=== PATIENT | female | born 1930 | race Caucasian/White ===

== ENCOUNTER 2018-08-20 15:47 | Emergency (ER) | payer MEDICARE, OTHER ==
[~2018-08-20] VITALS: Ht 160 cm; Wt 50.0 kg
[2018-08-20 16:41] LABS: BASOPHILS % (AUTO) 0.3 % (0-1); EOSINOPHILS # (AUTO) 0.4 X10'3 (0-0.9); EOSINOPHILS % (AUTO) 5.5 % (0-6); HEMATOCRIT 30.2 % (35.0-45.0); HEMOGLOBIN 9.9 g/dl (12.0-16.0); LYMPHOCYTES # (AUTO) 1.1 X10'3 (1.1-4.8); LYMPHOCYTES % (AUTO) 14.5 % (21-51); MEAN CORPUSCULAR HEMOGLOBIN 32.4 PG (27.0-31.0); MEAN CORPUSCULAR HGB CONC 32.9 % (33.0-36.5); MEAN CORPUSCULAR VOLUME 98.4 FL (78-98); MEAN PLATELET VOLUME 7.4 FL (7.4-10.4); MONOCYTES # (AUTO) 0.7 X10'3 (0-0.9); NEUTROPHILS # (AUTO) 5.2 X10'3 (1.8-7.7); NEUTROPHILS % (AUTO) 70.7 % (42-75); PLATELET COUNT 276 X10'3 (140-440); RED BLOOD COUNT 3.07 X10'6 (4.20-5.60); RED CELL DISTRIBUTION WIDTH 13.7 % (11.5-14.5); WHITE BLOOD COUNT 7.4 X10'3 (4.5-11.0)
[2018-08-20 17:03] LABS: ALANINE AMINOTRANSFERASE 14 U/L (12-78); ALBUMIN 3.1 G/DL (3.4-5.0); ALBUMIN/GLOBULIN RATIO 0.9 (1.1-1.5); ALKALINE PHOSPHATASE 57 IU/L (46-116); ANION GAP 8 (8-16); ASPARTATE AMINO TRANSFERASE 11 U/L (10-37); BILIRUBIN,TOTAL 0.2 MG/DL (0.1-1.0); BLOOD UREA NITROGEN 28 MG/DL (7-18); CHLORIDE 105 MMOL/L (99-107); CREATININE 1.22 MG/DL (0.40-0.90); GLUCOSE 124 MG/DL (70-104); POTASSIUM 4.4 MMOL/L (3.5-5.1); SODIUM 144 MMOL/L (135-145); TOTAL CARBON DIOXIDE 30.8 MMOL/L (24-32); TOTAL PROTEIN 6.4 G/DL (6.4-8.2); eGFR 42 ML/MIN
[2018-08-20 17:07] VITALS: BP 112/56
[2018-08-20 17:10] LABS: ETHANOL < 0.010 GM/DL (0.0-0.010)
[2018-08-20 17:19] LABS: CLARITY,URINE CLEAR (Clear); COLOR,URINE YELLOW (Yellow); GLUCOSE, URINE NEGATIVE (Neg); KETONES,URINE NEGATIVE (Neg); LEUKOCYTE ESTERASE ,URINE NEGATIVE (Neg); NITRITES, URINE NEGATIVE (Neg); OCCULT BLOOD,URINE NEGATIVE (Neg); PROTEIN,URINE NEGATIVE (Neg); UROBILINOGEN,URINE 0.2 E.U/dL (0.2-1.0)
[2018-08-20 17:27] LABS: UA COLLECTION TYPE CLN CATCH MIDSTREAM
[2018-08-20 17:29] LABS: URINE AMPHETAMINE SCREEN NEGATIVE (Neg); URINE BARBITUATE SCREEN NEGATIVE (Neg); URINE BENZODIAZEPINES SCREEN POSITIVE (Neg); URINE CANNABINOID SCREEN NEGATIVE (Neg); URINE COCAINE SCREEN NEGATIVE (Neg); URINE METHADONE SCREEN NEGATIVE (Neg); URINE OPIATE SCREEN POSITIVE (Neg); URINE PHENCYCLIDINE SCREEN NEGATIVE (Neg)
[2018-08-20] MEDS ORDERED: LEVO500T2 PO (21:50)
[2018-08-20] MEDS ORDERED: DULO-31 PO (21:54)
[2018-08-20] MEDS ORDERED: ALPR-160 PO (21:59)
[2018-08-20] MEDS ORDERED: HYDR-3968 PO (22:02)
== END 2018-08-20 21:09 | disposition home or self-care (01) ==
LOC: ER 15:47
DX: F32.9 Major depressive disorder, single episode, unspecified (principal); R45.851 Suicidal ideations; E03.9 Hypothyroidism, unspecified; N28.9 Disorder of kidney and ureter, unspecified; G89.29 Other chronic pain; F41.9 Anxiety disorder, unspecified; M25.511 Pain in right shoulder; Z90.49 Acquired absence of other specified parts of digestive tract; Z90.710 Acquired absence of both cervix and uterus; Z98.890 Other specified postprocedural states; Z88.2 Allergy status to sulfonamides; Z88.5 Allergy status to narcotic agent; Z60.2 Problems related to living alone
CPT/HCPCS: 36415; 71045; 80053; 80305; 80320; 81003; 84439; 84443; 84484; 85025; 93005; 99285

== ENCOUNTER 2018-08-20 20:08 | Inpatient (IN) | payer MEDICARE, OTHER ==
[~2018-08-20] VITALS: Ht 160 cm; Wt 46.3 kg
[2018-08-20 21:21] VITALS: BP 152/67
[2018-08-20] MEDS ORDERED: LEVO500T2 PO (21:50)
[2018-08-20] MEDS ORDERED: DULO-31 PO (21:54)
[2018-08-20] MEDS ORDERED: ALPR-160 PO (21:59)
[2018-08-20] MEDS ORDERED: HYDR-3968 PO (22:02)
[2018-08-20] MEDS: ALPRAZolam 0.25mg tablet PO PRN (22:54)
[2018-08-20] MEDS ORDERED: acetaminophen 325mg tablet PO PRN ×2 (23:05)
[2018-08-20] MEDS ORDERED: mag hydrox/Alum hydrox/simeth 30ml oral suspension PO PRN (23:05)
[2018-08-20] MEDS ORDERED: magnesium hydroxide 30ml (MOM) UD suspension PO PRN (23:05)
[2018-08-20] MEDS: traZODone 50mg tablet PO PRN (23:08)
[2018-08-21 08:00] VITALS: BP 109/49
[2018-08-21] MEDS ORDERED: levoFLOXACIN 500mg tablet PO SCH (08:00)
[2018-08-21] MEDS ORDERED: duloxetine 30mg CAPSULE.DR PO SCH (08:00)
[2018-08-21 09:00] LABS: CHOL/HDL RATIO 5.2 (0.00-4.99); CHOLESTEROL 181 MG/DL (0-200); HDL CHOLESTEROL 35 MG/DL (35-60); LDL CHOLESTEROL 108 MG/DL (50-100); TRIGLYCERIDES 263 MG/DL (20-135)
[2018-08-21] MEDS ORDERED: pneumococcal 23-VAL P-sac vacc 25 mcg/0.5ml vial IMVAC ONE (09:00)
[2018-08-21] MEDS: ALPRAZolam 0.25mg tablet PO PRN ×2 (11:16→20:23)
[2018-08-21] MEDS ORDERED: duloxetine 30mg CAPSULE.DR PO ONE (12:55)
[2018-08-21 19:00] VITALS: BP 111/47
[2018-08-21] MEDS: traZODone 50mg tablet PO PRN (20:24)
[2018-08-22] MEDS: ALPRAZolam 0.25mg tablet PO PRN ×2 (05:17→15:37)
[2018-08-22 07:36] VITALS: BP 125/65
[2018-08-22] MEDS: Protein Shake (high protein) 240ml (8oz) cup PO SCH ×3 (08:15→17:35)
[2018-08-22] MEDS: duloxetine 30mg CAPSULE.DR PO SCH (08:16)
[2018-08-22 19:00] VITALS: BP 114/51
[2018-08-22] MEDS: traZODone 50mg tablet PO PRN (21:06)
[2018-08-23] MEDS: ALPRAZolam 0.25mg tablet PO PRN ×3 (05:48→13:04)
[2018-08-23 08:00] VITALS: BP 147/77
[2018-08-23] MEDS: Protein Shake (high protein) 240ml (8oz) cup PO SCH ×3 (08:00→17:44)
[2018-08-23] MEDS: duloxetine 30mg CAPSULE.DR PO SCH (08:18)
[2018-08-23 19:00] VITALS: BP 102/40
[2018-08-23] MEDS: traZODone 50mg tablet PO PRN (20:18)
[2018-08-23] MEDS ORDERED: mirtazapine 15mg tablet PO SCH (21:00)
[2018-08-24 08:00] VITALS: BP 141/58
[2018-08-24] MEDS: Protein Shake (high protein) 240ml (8oz) cup PO SCH ×3 (08:36→18:02)
[2018-08-24] MEDS: duloxetine 30mg CAPSULE.DR PO SCH (08:36)
[2018-08-24] MEDS: ALPRAZolam 0.25mg tablet PO PRN ×2 (08:40→16:58)
[2018-08-24 19:28] VITALS: BP 109/47
[2018-08-24] MEDS: mirtazapine 15mg tablet PO SCH (21:22)
[2018-08-25] MEDS: ALPRAZolam 0.25mg tablet PO SCH (08:03)
[2018-08-25] MEDS: duloxetine 30mg CAPSULE.DR PO SCH (08:04)
[2018-08-25] MEDS: Protein Shake (high protein) 240ml (8oz) cup PO SCH ×3 (08:04→18:21)
[2018-08-25 08:10] VITALS: BP 136/66
[2018-08-25 19:54] VITALS: BP 119/43
[2018-08-25] MEDS: mirtazapine 15mg tablet PO SCH (20:19)
[2018-08-26 08:00] VITALS: BP 140/54
[2018-08-26] MEDS: Protein Shake (high protein) 240ml (8oz) cup PO SCH ×3 (08:02→18:00)
[2018-08-26] MEDS: duloxetine 30mg CAPSULE.DR PO SCH (08:02)
[2018-08-26] MEDS: ALPRAZolam 0.25mg tablet PO SCH ×2 (08:02→17:54)
[2018-08-26] MEDS: ALPRAZolam 0.25mg tablet PO PRN (17:57)
[2018-08-26 20:00] VITALS: BP 106/46
[2018-08-26] MEDS: mirtazapine 15mg tablet PO SCH (21:13)
[2018-08-27] MEDS: duloxetine 30mg CAPSULE.DR PO SCH (08:03)
[2018-08-27] MEDS: ALPRAZolam 0.25mg tablet PO SCH (08:04)
[2018-08-27] MEDS: Protein Shake (high protein) 240ml (8oz) cup PO SCH ×3 (08:07→18:05)
[2018-08-27 08:08] VITALS: BP 144/57
[2018-08-27 19:31] VITALS: BP 115/43
[2018-08-27 20:00] VITALS: BP 110/50
[2018-08-27] MEDS: mirtazapine 15mg tablet PO SCH (20:40)
[2018-08-28] MEDS: ALPRAZolam 0.25mg tablet PO SCH (08:04)
[2018-08-28] MEDS: Protein Shake (high protein) 240ml (8oz) cup PO SCH ×3 (08:04→18:01)
[2018-08-28] MEDS: duloxetine 30mg CAPSULE.DR PO SCH (08:04)
[2018-08-28 08:26] VITALS: BP 145/60
[2018-08-28 20:00] VITALS: BP 123/35
[2018-08-28] MEDS: mirtazapine 15mg tablet PO SCH (20:17)
[2018-08-28 22:03] VITALS: BP 113/45
[2018-08-29] MEDS: ALPRAZolam 0.25mg tablet PO PRN (03:53)
[2018-08-29] MEDS: duloxetine 30mg CAPSULE.DR PO SCH (07:57)
[2018-08-29] MEDS: ALPRAZolam 0.25mg tablet PO SCH (07:57)
[2018-08-29 07:58] VITALS: BP 140/75
[2018-08-29] MEDS: Protein Shake (high protein) 240ml (8oz) cup PO SCH ×3 (08:02→18:00)
[2018-08-29 20:00] VITALS: BP 94/44
[2018-08-29] MEDS: mirtazapine 15mg tablet PO SCH (20:37)
[2018-08-30] MEDS: ALPRAZolam 0.25mg tablet PO PRN (04:00)
[2018-08-30 08:00] VITALS: BP 148/61
[2018-08-30] MEDS: duloxetine 30mg CAPSULE.DR PO SCH (08:18)
[2018-08-30] MEDS: ALPRAZolam 0.25mg tablet PO SCH (08:19)
[2018-08-30] MEDS: Protein Shake (high protein) 240ml (8oz) cup PO SCH ×3 (08:20→18:00)
[2018-08-30 19:00] VITALS: BP 122/44
[2018-08-30] MEDS: mirtazapine 15mg tablet PO SCH (20:08)
[2018-08-31 08:00] VITALS: BP 134/59
[2018-08-31] MEDS: ALPRAZolam 0.25mg tablet PO SCH (08:10)
[2018-08-31] MEDS: Protein Shake (high protein) 240ml (8oz) cup PO SCH ×3 (08:10→17:54)
[2018-08-31] MEDS: duloxetine 30mg CAPSULE.DR PO SCH (08:10)
[2018-08-31 20:00] VITALS: BP 104/46
[2018-08-31] MEDS: traZODone 50mg tablet PO PRN (20:35)
[2018-08-31] MEDS: mirtazapine 15mg tablet PO SCH (20:36)
[2018-09-01] MEDS: HYDROcodone/acetaminophen 5mg/325mg tablet PO PRN ×2 (07:24→14:20)
[2018-09-01] MEDS: ALPRAZolam 0.25mg tablet PO SCH (07:56)
[2018-09-01] MEDS: duloxetine 30mg CAPSULE.DR PO SCH (07:56)
[2018-09-01 08:00] VITALS: BP 128/55
[2018-09-01] MEDS: Protein Shake (high protein) 240ml (8oz) cup PO SCH ×3 (08:03→18:00)
[2018-09-01 20:00] VITALS: BP 126/69
[2018-09-01] MEDS: traZODone 50mg tablet PO PRN (20:06)
[2018-09-01] MEDS: mirtazapine 15mg tablet PO SCH (20:06)
[2018-09-02] MEDS: HYDROcodone/acetaminophen 5mg/325mg tablet PO PRN ×3 (07:18→21:03)
[2018-09-02] MEDS: Protein Shake (high protein) 240ml (8oz) cup PO SCH ×3 (07:50→17:40)
[2018-09-02] MEDS: duloxetine 30mg CAPSULE.DR PO SCH (07:50)
[2018-09-02] MEDS: ALPRAZolam 0.25mg tablet PO SCH (07:50)
[2018-09-02 08:00] VITALS: BP 147/63
[2018-09-02 19:50] VITALS: BP 102/48
[2018-09-02] MEDS: mirtazapine 15mg tablet PO SCH (21:02)
[2018-09-02] MEDS: traZODone 50mg tablet PO PRN (21:03)
[2018-09-03] MEDS: ALPRAZolam 0.5mg tablet PO PRN ×2 (03:19→08:02)
[2018-09-03] MEDS: levoTHYROXINE 25mcg tablet PO SCH (07:32)
[2018-09-03] MEDS: HYDROcodone/acetaminophen 5mg/325mg tablet PO PRN ×3 (07:32→20:36)
[2018-09-03 08:00] VITALS: BP 135/55
[2018-09-03] MEDS: duloxetine 30mg CAPSULE.DR PO SCH (08:02)
[2018-09-03] MEDS: ALPRAZolam 0.25mg tablet PO SCH (08:03)
[2018-09-03] MEDS: Protein Shake (high protein) 240ml (8oz) cup PO SCH ×3 (08:03→17:26)
[2018-09-03 19:00] VITALS: BP 106/45
[2018-09-03] MEDS: mirtazapine 15mg tablet PO SCH (20:36)
[2018-09-03] MEDS: traZODone 50mg tablet PO PRN (20:36)
[2018-09-04] MEDS: ALPRAZolam 0.5mg tablet PO PRN (01:53)
[2018-09-04] MEDS: duloxetine 30mg CAPSULE.DR PO SCH (07:32)
[2018-09-04] MEDS: HYDROcodone/acetaminophen 5mg/325mg tablet PO PRN ×3 (07:32→20:28)
[2018-09-04] MEDS: levoTHYROXINE 25mcg tablet PO SCH (07:32)
[2018-09-04] MEDS: ALPRAZolam 0.25mg tablet PO SCH (07:33)
[2018-09-04] MEDS: Protein Shake (high protein) 240ml (8oz) cup PO SCH ×4 (08:00→18:39)
[2018-09-04 08:02] VITALS: BP 134/53
[2018-09-04 19:00] VITALS: BP 120/44
[2018-09-04] MEDS: traZODone 50mg tablet PO PRN (20:21)
[2018-09-04] MEDS: mirtazapine 15mg tablet PO SCH (20:21)
[2018-09-05] MEDS: ALPRAZolam 0.25mg tablet PO PRN (02:50)
[2018-09-05 07:23] VITALS: BP 154/54
[2018-09-05] MEDS: HYDROcodone/acetaminophen 5mg/325mg tablet PO PRN (07:37)
[2018-09-05] MEDS: levoTHYROXINE 25mcg tablet PO SCH (07:37)
[2018-09-05] MEDS: ALPRAZolam 0.25mg tablet PO SCH (07:38)
[2018-09-05] MEDS: duloxetine 30mg CAPSULE.DR PO SCH (07:38)
[2018-09-05] MEDS: Protein Shake (high protein) 240ml (8oz) cup PO SCH ×2 (08:49→13:44)
[2018-09-05] MEDS ORDERED: LEVO25TA7 PO (12:01)
[2018-09-05] MEDS ORDERED: MIRT30TA8 PO (12:01)
[2018-09-05] MEDS ORDERED: TRAZ-218 PO (12:01)
[2018-09-05] MEDS ORDERED: ALPR0.257 PO (12:01)
[2018-09-05] MEDS ORDERED: DULO60CA64 PO (12:01)
== END 2018-09-05 12:32 | disposition home or self-care (01) | DRG 885 ==
LOC: ADULT MH 20:08
PROVIDERS: ADMIT Psychiatry & Neurology Psychiatry; ATTEND Psychiatry & Neurology Psychiatry
PROC: 3E0234Z Introduction of Serum, Toxoid and Vaccine into Muscle, Percutaneous Approach (ICD-10-PCS; principal; 2018-08-23)
DX: F33.2 Major depressive disorder, recurrent severe without psychotic features (principal); F41.9 Anxiety disorder, unspecified; D63.8 Anemia in other chronic diseases classified elsewhere; E03.9 Hypothyroidism, unspecified; Z96.642 Presence of left artificial hip joint; Z66 Do not resuscitate; N18.3 Chronic kidney disease, stage 3 (moderate); Z90.710 Acquired absence of both cervix and uterus; Z23 Encounter for immunization; Z88.2 Allergy status to sulfonamides; Z88.5 Allergy status to narcotic agent; Z87.440 Personal history of urinary (tract) infections; Z81.1 Family history of alcohol abuse and dependence; Z84.89 Family history of other specified conditions
CPT/HCPCS: 36415; 80061; 83036; 84480; 87070; 90732; 99285